=== PATIENT | male | born 1995 ===

== ENCOUNTER 2017-08-29 10:45 | Emergency (ER) | payer SELFPAY | END 2017-08-29 11:53 | disposition home or self-care (01) | LOC: ERS 10:45 | DX: R22.0 Localized swelling, mass and lump, head (principal); Z71.6 Tobacco abuse counseling; F17.210 Nicotine dependence, cigarettes, uncomplicated | CPT/HCPCS: 99406 ==

== ENCOUNTER 2018-08-13 04:39 | Emergency (ER) | payer SELFPAY | END 2018-08-13 05:06 | disposition home or self-care (01) | LOC: ERS 04:39 | DX: K13.0 Diseases of lips (principal); F17.210 Nicotine dependence, cigarettes, uncomplicated | CPT/HCPCS: 10060 ==

== ENCOUNTER 2018-08-19 21:11 | Emergency (ER) | payer SELFPAY | END 2018-08-19 22:39 | disposition left against medical advice (07) | LOC: ERS 21:11 | DX: S01.511A Laceration without foreign body of lip, initial encounter (principal); W45.8XXA Other foreign body or object entering through skin, initial encounter | CPT/HCPCS: 99282 ==